=== PATIENT | male | born 1955 | race Two or more races ===

== ENCOUNTER 2024-11-18 10:32 | Emergency (ER) | payer MEDICARE, MEDICAID, SELFPAY ==
[2024-11-18 10:42] VITALS: BP 125/65; PULSE 75; RESP 18; TEMP 36.7; O2SAT 95; BMI 22.1
--- NOTE | 2024-11-18 10:49 | XR_ITS ---
Examination: CT abdomen and pelvis without contrast. Coronal 3-D reconstructions. Sagittal 2-D reconstructions. Date and time of exam:November 18, 2024 1110 hrs. Indications: Onset generalized abdominal pain and diarrhea nausea vomiting today CTDI: vol (mGy): 6.01 DLP: (mGycm): 333 Technique: Axial images of the abdomen have been obtained, 3 mm slice thickness Intravenous contrast material has not been administered. Low dose protocols were performed. One or more of the following dose reduction techniques were used; automated exposure control, adjustment of the mA and/or KV according to patient size, use of iterative reconstruction technique. Findings: Significant enlargement left atrium left ventricle Moderate vascular congestion Cirrhosis, liver irregular in contour with 10 mm calcification anterior margin of the liver Contracted gallbladder No splenomegaly No pancreatic mass Bilateral small renal cyst Moderate bilateral renal parenchymal scar formation No hydronephrosis or ureteral calculi Mild diffuse wall thickening involving the colon, likely hepatic colopathy Normal appendix No diverticulitis Normal seminal vesicles Transverse prostate dimension 5.4 cm Contracted urinary bladder Left inguinal hernia which contains small bowel with findings suspicious for early incarceration of the small bowel and dilated small bowel loops in the pelvis Prominent osteopenia Impression: Cirrhosis Negative for splenomegaly Moderate bilateral renal parenchymal scar formation Hepatic colopathy Left inguinal hernia which contains small bowel, suspicious for early incarceration of the small bowel with dilated small bowel loops in the pelvis, recommend surgical consultation
--- NOTE | 2024-11-18 10:49 | PD.EDRME ---
Rapid Medical Screening Exam E Arrival date/time: 11/18/24 10:32 69-year-old male with no known medical history presents to the emergency room with a chief complaint of lower abdominal pain, and hematuria x 2 days. I have greeted and performed a focused initial assessment of this patient. A comprehensive ED assessment and evaluation of the patient, analysis of all test results, and completion of the medical decision making process will be conducted by additional ED providers. Chief Complaint: Nausea/Vomiting/Diarrhea Vital signs: Vital Signs Temperature 98.1 F 11/18/24 10:42 Pulse Rate 75 11/18/24 10:42 Respiratory Rate 18 11/18/24 10:42 Blood Pressure 125/65 11/18/24 10:42 Pulse Oximetry (%) 95 11/18/24 10:42 Oxygen Delivery Method Room Air 11/18/24 10:42 Vital signs reviewed by provider: Yes
[2024-11-18 11:46] LABS: Basophils % (Auto) 0 % (0-2.5); Eosinophils # (Auto) 0.1 Thou/mm3 (0.0-0.5); Eosinophils % (Auto) 1 % (0-10); Hematocrit 48.6 % (41.0-53.0); Hemoglobin 15.9 g/dL (13.5-16.0); Immature Granulocytes % (Auto) 0 % (0-0); Immature Granulocytes Auto 0.03 Thou/mm3 (0.00-0.00); Lymphocytes # (Auto) 0.8 Thou/mm3 (1.0-4.8); Lymphocytes % (Auto) 8 % (10-50); Mean Corpuscular HGB Conc 32.7 g/dl (31.0-37.0); Mean Corpuscular Hemoglobin 31.7 pg (25.0-35.0); Mean Corpuscular Volume 97 fL (80-100); Monocytes # (Auto) 0.9 Thou/mm3 (0.0-0.8); Monocytes % (Auto) 9 % (0-12); Neutrophils # (Auto) 8.1 Thou/mm3 (1.8-7.7); Neutrophils % (Auto) 82 % (37-80); Nucleated Red Blood Cell % 0 /100 WBC (0); Platelet Count 207 Thou/mm3 (140-440); RDW Standard Deviation 50.3 fL (35.1-43.9); Red Blood Count 5.01 Miln/mm3 (4.50-5.90)
[2024-11-18 12:05] LABS: Alanine Aminotransferase 17 U/L (10-49); Albumin, Serum 4.4 gm/dL (3.4-4.8); Albumin/Globulin Ratio 1.3 (1.2-2.2); Alkaline Phosphatase 99 U/L (46-116); Anion Gap 8 (7-16); Aspartate Amino Transferase 26 U/L (0-34); BUN/Creatinine Ratio 16 Ratio (12-20); Bilirubin,Total 0.9 mg/dL (0.3-1.2); Blood Urea Nitrogen 22 mg/dL (9-23); Calcium 9.6 mg/dL (8.3-10.6); Calcium (Corrected) 9.6 mg/dL (8.5-10.1); Carbon Dioxide 24.1 mMol/L (20.0-31.0); Chloride 106 mMol/L (98-107); Creatinine (Component) 1.4 mg/dL (0.6-1.3); Estimated Creatinine Clearance 48.6 mL/min (>60); Globulin 3.4 gm/dL (2.3-3.5); Glucose 95 mg/dL (74-106); Lipase 89 U/L (12-53); Osmolality,Calculated 278 (275-295); Potassium 5.5 mMol/L (3.4-5.1); Sodium 138 mMol/L (136-145); Total Protein 7.8 gm/dL (5.7-8.2); eGFR 55 See Note
--- NOTE | 2024-11-18 12:48 | EKG_ITS ---
[facility] Test Date: 2024-11-18 Pat Name: EDMUND PONCE Department: Room: - Gender: Male Dba Manager: : [id number] Requested By: Earline Reagan ([facility]) Daniel Order Number: [id number] Reading MD: Earline Reagan ([facility]) Daniel Measurements Intervals [place] Rate: 78 P: AL: QRS: 215 QRSD: 172 T: 29 QT: 422 QTc: 481 Interpretive Statements ATRIAL FIBRILLATION RIGHT AXIS DEVIATION [QRS AXIS > 100] RIGHT BUNDLE BRANCH BLOCK AND POSSIBLE RIGHT VENTRICULAR HYPERTROPHY [RBBB, 1.5 mV R IN V1, RAD] No previous ECG available for comparison /store/S0/[id number]/[id number].pdf
--- NOTE | 2024-11-18 12:50 | PD.EDABDPN ---
ED Abdominal Pain RME/HPI General Chief Complaint: Nausea/Vomiting/Diarrhea Stated complaint: VOMITING, DIARRHEA, URINATING BLOOD, ABD PAIN Time seen by provider: 11/18/24 12:48 Arrival date/time: 11/18/24 10:32 This is a 69-year-old male history of CHF, heart valve replacement currently on warfarin, liver cirrhosis presents to the emergency department with complaints of left lower abdominal pain x 2 days. Patient does have a history of inguinal hernia for many years now. He states his pain began yesterday with mild nausea. Reports pain 6 out of 10 patient did not attempt any interventions or take any OTC medications prior to ED visit. Patient also reported he had some mild diarrhea. Denies fever, chills no emesis. Limitations: no limitations RME / HPI RME / HPI narrative: 11/18/24 10:32 69-year-old male with no known medical history presents to the emergency room with a chief complaint of lower abdominal pain, and hematuria x 2 days. I have greeted and performed a focused initial assessment of this patient. A comprehensive ED assessment and evaluation of the patient, analysis of all test results, and completion of the medical decision making process will be conducted by additional ED providers. Related Data Previous Rx's ?Medication ?Instructions ?Recorded amoxicillin 875 mg-potassium 1 tab PO BID #14 tabs 11/18/24 clavulanate 125 mg tablet Allergies Allergy/AdvReac Type Severity Reaction Status Date / Time No Known Allergies Allergy Verified 11/18/24 10:35 Review of Systems Review of Systems Systems Reviewed: All systems reviewed, normal except as documented Narrative Review of Systems: Gen: No fever, no chills, no weight loss EYES: No discharge, no visual changes, no pain HEENT: No ear pain, no congestion, no sore throat PULM: No shortness of breath, no cough, no congestion CV: No chest pain, no dyspnea on exertion, no palpitations GI: No nausea, no vomiting, no diarrhea, + left lower pain, no constipation : No frequency, no urgency, no dysuria Musc/skel: No joint pain, no back pain Skin: No rash Psyc: No hallucinations, no depression Heme/Lymph: No easy bleeding or bruising tendencies Neuro: No weakness, no headache ED Exam General Limitations: Present no limitations General appearance: Present alert and in no apparent distress Head Head exam: Present atraumatic Eye Eye exam: Present normal appearance, PERRL and EOMI ENT ENT exam: Present normal exam, normal oropharynx and mucous membranes moist Neck Neck exam: Present normal inspection, full ROM and trachea midline Chest Chest inspection: Present normal inspection and symmetric chest wall rise Respiratory Respiratory exam: Present normal lung sounds bilaterally Cardiovascular Cardiovascular exam: Present regular rate, normal rhythm and normal heart sounds Abdominal Exam Abdominal exam: Present soft, tenderness and normal bowel sounds; Absent distention or guarding Abdominal tenderness: Present LLQ and mild Rectal Exam Rectal exam: Present deferred exam: Present normal inspection Extremities Exam Extremities exam: Present normal inspection and full ROM Back Exam Back exam: Present normal inspection and full ROM Neurological Exam Neurological exam: Present alert, oriented X3 and CN II-XII intact Psychiatric Psychiatric exam: Present normal affect and normal mood Skin Skin exam: Present warm, dry, intact and normal color Course Course Course Narrative: 1253-I did go ahead and spoke to general surgery who will come and evaluate patient Quality Measures none Orders Category Date Time Status EKG (ED ONLY) *Do not use* NOW Care 11/18/24 12:[address] abdomen pelvis wo con Stat Exams 11/18/24 10:49 Completed EKG (ED Only) Stat Exams 11/18/24 12:48 Draft CBC Stat Lab 11/18/24 11:19 Completed CMP [Comprehensive Metabolic Panel] Stat Lab 11/18/24 11:19 Completed Lipase Stat Lab 11/18/24 11:19 Completed PT [Prothrombin Time with INR] Stat Lab 11/18/24 11:19 Completed Sed Rate (ESR) Stat Lab 11/18/24 11:19 Completed Troponin I Stat Lab 11/18/24 11:19 Completed UA [Urinalysis] Stat Lab 11/18/24 13:06 Completed Urine Culture Stat Lab 11/18/24 13:06 Received Vital Signs Vital signs: Vital Signs Temperature 98.1 F 11/18/24 10:42 Pulse Rate 75 11/18/24 10:42 Respiratory Rate 18 11/18/24 10:42 Blood Pressure 125/65 11/18/24 10:42 Pulse Oximetry (%) 95 11/18/24 10:42 Oxygen Delivery Method Room Air 11/18/24 10:42 Abdominal Pain MDM MDM Narrative MDM Narrative:: This is a 69-year-old male evaluated in the emergency department for complaints of lower abdominal pain. Does have a history of many years of inguinal hernia. Ports he did have some mild dysuria prompting his ED visit today. Patient's vital signs stable during ED stay. No changes in condition. Labs reassuring WBCs 10 no leukocytosis no bandemia no anemia. Sodium 138 potassium 5.5 creatinine 1.4 GFR 55 liver enzymes normal troponin negative lipase 89. UA positive for RBCs and 21 WBCs most likely UTI. I did go ahead and reviewed his CT scan which demonstrates hepatic colopathy, and left inguinal hernia patient reports his had that inguinal hernia for 6 years has not followed up outpatient. Due to the reading report by radiologist I did go ahead and contact general surgery on-call @1400-patient evaluated by general surgery Dr. Erazo Reports that inguinal hernia is reducible. Patient can be followed outpatient general surgery after cardiac clearance for inguinal hernia repair. At this time I feel the patient safe to be discharged with treatment of acute UTI. Did discuss with the patient findings of possible liver cirrhosis on CT scan, PT and INR elevated. And hepatic colopathy. He advises he will follow-up with his PCP return to the emergency department with any worsening symptoms or change in condition. Patient data External records reviewed:: [facility] previous records Clinical information provided by:: patient Social determinants that could affect healthcare access:: none Patient has the following chronic illnesses:: CHF, valve replacement, liver cirrhosis, How is presenting disease/condition affected by chronic disease/condition?: exacerbated by Evaluation data The following diagnostics were reviewed and interpreted by me:: lab results, radiology exam(s) and EKG tracing(s) Lab and/or radiology exams considered but not ordered:: Yes Interpretation Summary: Examination: CT abdomen and pelvis without contrast. Coronal 3-D reconstructions. Sagittal 2-D reconstructions. Date and time of exam:November 18, 2024 1110 hrs. Indications: Onset generalized abdominal pain and diarrhea nausea vomiting today CTDI: vol (mGy): 6.01 DLP: (mGycm): 333 Technique: Axial images of the abdomen have been obtained, 3 mm slice thickness Intravenous contrast material has not been administered. Low dose protocols were performed. One or more of the following dose reduction techniques were used; automated exposure control, adjustment of the mA and/or KV according to patient size, use of iterative reconstruction technique. Findings: Significant enlargement left atrium left ventricle Moderate vascular congestion Cirrhosis, liver irregular in contour with 10 mm calcification anterior margin of the liver Contracted gallbladder No splenomegaly No pancreatic mass Bilateral small renal cyst Moderate bilateral renal parenchymal scar formation No hydronephrosis or ureteral calculi Mild diffuse wall thickening involving the colon, likely hepatic colopathy Normal appendix No diverticulitis Normal seminal vesicles Transverse prostate dimension 5.4 cm Contracted urinary bladder Left inguinal hernia which contains small bowel with findings suspicious for early incarceration of the small bowel and dilated small bowel loops in the pelvis Prominent osteopenia Impression: Cirrhosis Negative for splenomegaly Moderate bilateral renal parenchymal scar formation Hepatic colopathy Left inguinal hernia which contains small bowel, suspicious for early incarceration of the small bowel with dilated small bowel loops in the pelvis, recommend surgical consultation Medications / Prescriptions Medications or Prescriptions considered but not ordered:: No Medication administrations:: No Consultations Consultation(s) initiated? (list below): Yes Consultation #1 (Physician, Specialty, Details): Dr. Car general surgery. Diagnosis Differential diagnosis abdominal pain: abdominal pain, constipation, gastroenteritis, small bowel obstruction and other (Hernia inguinal hernia) Most likely diagnosis given after review of the tests above:: Hepatic colopathy inguinal hernia pain Admission Indicated Admission indicated?: not indicated Admission Request Was there a request for admission?: No Disposition Plan Disposition Plan: Discharge Discharge Attestation Discharge Attestation: The patient and all family members were given an opportunity to ask questions and understood the discharge instructions. Discharge instructions specifically effects, indications for sooner follow up or return to the emergency department, and the expected course of current diagnosis. Patient condition: Stable Discharge Plan Plan Patient Disposition: HOME (Self Care) Patient condition on transfer: Stable Prescriptions/Referrals Prescriptions/Med Rec: New amoxicillin-pot clavulanate 875-125 mg tablet 1 tab PO BID Qty: 14 0RF Referrals: No Primary/Family,Physician [Primary Care Provider] - In 1 week Problem List Clinical Impression: UTI (urinary tract infection), Cirrhosis of liver, Inguinal hernia Patient/Caregiver Discharge Instructions Discharge Activity: activity as tolerated Education Materials: Treating Cirrhosis, Understanding Urinary Tract ..., ED Hernia (Adult) Additional Instructions: I will start you on antibiotics for urinary tract infection. Is very important that you follow-up with your primary doctor 2 days your test demonstrated today you have some mild cirrhosis (liver disease )in which you will need close follow-up. You also have a chronic hernia which you need to have taking care of you can do this in the outpatient basis Dr. Car-neurosurgery did evaluate you in the emergency department and stated to you you can have this replaced in outpatient basis. Please take antibiotics as directed. Drink a lot of water can take [id number] pain reliever for pain. Return to the emergency department this any worsening symptoms change in condition. Print Language: Georgian Stand Alone Forms: Kaylee Award Info., Patient Portal Info Letter PA/NAVIGATION TEACHER Supervising Physician PA/NAVIGATION TEACHER Supervising Physician: Dr. Bradshaw
[2024-11-18 13:10] LABS: INR 2.2 (0.9-1.3)
[2024-11-18 13:13] LABS: Collection Type, Urine Clean Catch
[2024-11-18 13:21] LABS: Bacteria,Urine Rare; Bilirubin,Urine Negative (Negative); Blood,Urine 1+ (Negative); Clarity,Urine Clear (Clear/Hazy); Color,Urine Yellow (Lt Yel-Yel); Glucose, Urine Negative (Negative); Ketones,Urine Negative (Negative); Leukocyte Esterase,Urine Positive (Negative); Nitrite,Urine Negative (Negative); Protein,Urine Trace (Neg - Trace); RBC,Urine 4 /hpf (0-3); Specific Gravity,Urine 1.024 (1.001-1.035); Squamous Epithelial Cell,Urine 5 /hpf (0-5); Urobilinogen,Urine Negative mg/dL (0.0-1.0); WBC,Urine 21 /hpf (0-5)
[2024-11-18 13:27] LABS: Troponin I 0.038 ng/mL (0.0-0.045)
[2024-11-18 13:56] LABS: Sed Rate (ESR) 16 mm/hr (0-20)
== END 2024-11-18 15:27 | disposition home or self-care (01) ==
PROVIDERS: Nurse Practitioner Family; Nurse Practitioner Primary Care; Emergency Provider Emergency Medicine
DX: N39.0 Urinary tract infection, site not specified (principal); K40.90 Unilateral inguinal hernia, without obstruction or gangrene, not specified as recurrent; K74.60 Unspecified cirrhosis of liver; R19.7 Diarrhea, unspecified
CPT/HCPCS: 36415; 74176; 80053; 81001; 83690; 84484; 85025; 85610; 85652; 87077; 87086; 87186; 93005; 99284

== ENCOUNTER 2024-11-27 18:50 | Emergency (ER) | payer MEDICARE, MEDICAID, SELFPAY ==
[2024-11-27 18:52] VITALS: BMI 22.1
[2024-11-27 19:34] VITALS: BP 134/84; PULSE 85; RESP 18; TEMP 37.2; O2SAT 98
--- NOTE | 2024-11-27 19:40 | XR_ITS ---
Examination: PA lateral chest 2 views Technique: Upright PA lateral chest 2 views Exam date and time: November 27, 2024 1951 hrs. Indications: Shortness of breath fever today. Findings: Moderate enlargement left ventricle Moderate hyperexpansion Cardiac leads satisfactory position Minimal blunting of costophrenic angles Mild vascular congestion. No lobar pneumonia or pulmonary edema Impression: Moderate enlargement left ventricle No lobar pneumonia or pulmonary edema
--- NOTE | 2024-11-27 19:40 | PD.EDRME ---
Rapid Medical Screening Exam RME Arrival date/time: 11/27/24 18:50 69-year-old male reports with complaints of cough shortness of breath fever and chills x 3 days Chief Complaint: Flu Like Symptoms Time Seen by Provider: 11/27/24 18:55 Vital signs: Vital Signs Temperature 98.9 F 11/27/24 19:34 Pulse Rate 85 11/27/24 19:34 Respiratory Rate 18 11/27/24 19:34 Blood Pressure 134/84 H 11/27/24 19:34 Pulse Oximetry (%) 98 11/27/24 19:34 Oxygen Delivery Method Room Air 11/27/24 19:34
--- NOTE | 2024-11-27 20:11 | PD.EDURI ---
Upper Respiratory Inf. RME/HPI General Chief Complaint: Flu Like Symptoms Stated Complaint: Fever, cough, congestion, bodyaches, GARCIA, SOB Time Seen by Provider: 11/27/24 18:55 Arrival date/time: 11/27/24 18:50 RME / HPI RME / HPI Narrative: 11/27/24 18:50 69-year-old male reports with complaints of cough shortness of breath fever and chills x 3 days This section includes all my notes and documentations, including HPI, PE, and ED course. Matt Cassidy MD HPI: 69-year-old male here with about 40-hour history of cough and subjective fever and chills and bodyaches and malaise. No other complaints. ROS: All negative except as documented in HPI. Physical Exam: General: Alert and oriented. Hacking cough noted. Eyes: Conjunctivae and lids clear. ENT: No nasal congestion. Neck: Supple. Heart: RRR. Lungs: No respiratory distress. Good air movement. No rhonchi, wheezing, rales. Skin: Warm and dry. Neuro: Alert and oriented X 3. I reviewed all diagnostic test results. My interpretation of the chest x-ray is no acute findings. Influenza positive. At this point, diagnoses include influenza. Treatment here included Tamiflu. Prescribe Tamiflu and recommended supportive care. Based on my best medical judgment, made decision no further evaluation or treatment indicated at this time. Patient understands and agrees to the discharge instructions customized and printed, see below. Discharge instructions from Dr. Cassidy: --No physical exertion for 3 days to help rest your lungs. --No smoking and no exposure to smoking or pets or dust or cold air. --Tamiflu to kill the influenza germs. --Prednisone to help decrease inflammation of the lungs. --Ibuprofen 800 mg every 8 hours today and tomorrow.? Then as needed for fever or pain. --Tylenol with codeine for severe cough or pain.? --Benadryl as needed for cough or congestion.? ?Increase oral fluid.? We need extra fluid when we are sick.?? --See a private doctor next week if not better. --Seek immediate medical care with significant worsening or with any concerns. Matt Cassidy MD Related Data Previous Rx's ?Medication ?Instructions ?Recorded amoxicillin 875 mg-potassium 1 tab PO BID #14 tabs 11/18/24 clavulanate 125 mg tablet acetaminophen 300 mg-codeine 30 mg 2 tab PO Q8H PRN pain #20 tabs 11/27/24 tablet oseltamivir 75 mg capsule (Tamiflu) 75 mg PO BID 5 days #10 caps 11/27/24 prednisone 50 mg tablet 50 mg PO QDAY #5 tabs 11/27/24 Allergies Allergy/AdvReac Type Severity Reaction Status Date / Time No Known Allergies Allergy Verified 11/18/24 10:35 Course Quality Measures none Orders Category Date Time Status Bedside Influenza A&B Antigen Test NOW Care 11/27/24 19:40 Completed XR chest 2V Stat Exams 11/27/24 19:40 Completed Oseltamivir [Tamiflu] Med 11/27/24 20:04 Discontinued 75 mg PO X1 ONE Vital Signs Vital signs: Vital Signs Temperature 98.9 F 11/27/24 19:34 Pulse Rate 85 11/27/24 19:34 Respiratory Rate 18 11/27/24 19:34 Blood Pressure 134/84 H 11/27/24 19:34 Pulse Oximetry (%) 98 11/27/24 19:34 Oxygen Delivery Method Room Air 11/27/24 19:34 Upper Respiratory Infection Patient data External records reviewed:: [facility] previous records Clinical information provided by:: patient Social determinants that could affect healthcare access:: none Patient has the following chronic illnesses:: None How is presenting disease/condition affected by chronic disease/condition?: no chronic disease Evaluation data The following diagnostics were reviewed and interpreted by me:: lab results and radiology exam(s) Lab and/or radiology exams considered but not ordered:: None Interpretation Summary: Positive influenza Medications / Prescriptions Medications or Prescriptions considered but not ordered:: None Medication administrations:: Medication Administration History Discontinued Medications Oseltamivir Phosphate (Oseltamivir 75 Mg Capsule) 75 mg PO X1 ONE Stop: 11/27/24 20:05 Tamiflu Consultations Consultation(s) initiated? (list below): No Diagnosis Upper Respiratory Differential Diagnosis: upper respiratory infection, viral infection, bronchitis, influenza and other (Pneumonia, COVID) Most likely diagnosis given after review of the tests above:: Positive influenza Admission Indicated Admission indicated?: not indicated Explain why admission is indicated or not indicated:: There is no indication for admission. Admission Request Was there a request for admission?: No Disposition Plan Disposition Plan: Discharge Discharge Attestation Discharge Attestation: The patient and all family members were given an opportunity to ask questions and understood the discharge instructions. Discharge instructions specifically effects, indications for sooner follow up or return to the emergency department, and the expected course of current diagnosis. Patient condition: Stable Discharge Plan Plan Patient Disposition: HOME (Self Care) Prescriptions/Referrals Prescriptions/Med Rec: New acetaminophen-codeine 300-30 mg tablet 2 tab PO Q8H MDD 6 PRN (Reason: pain) Qty: 20 0RF oseltamivir [Tamiflu] 75 mg capsule 75 mg PO BID 5 Days Qty: 10 0RF prednisone 50 mg tablet 50 mg PO QDAY Qty: 5 0RF No Action amoxicillin-pot clavulanate 875-125 mg tablet 1 tab PO BID Qty: 14 0RF Problem List Clinical Impression: Influenza Patient/Caregiver Discharge Instructions Discharge Activity: activity as tolerated Education Materials: ED Influenza (Adult) Additional Instructions: Discharge instructions from Dr. Cassidy: --No physical exertion for 3 days to help rest your lungs. --No smoking and no exposure to smoking or pets or dust or cold air. --Tamiflu to kill the influenza germs. --Prednisone to help decrease inflammation of the lungs. --Ibuprofen 800 mg every 8 hours today and tomorrow.? Then as needed for fever or pain. --Tylenol with codeine for severe cough or pain.? --Benadryl as needed for cough or congestion.? ?Increase oral fluid.? We need extra fluid when we are sick.?? --See a private doctor next week if not better. --Seek immediate medical care with significant worsening or with any concerns. Instrucciones de jorge del Dr. Cassidy: --No hacer esfuerzo f?sico karen 3 d?as para ayudar a que michael pulmones descansen. --No fumar ni exponerse al humo del tabaco, a las mascotas, al polvo o al aire fr?o. --Tamiflu para matar los g?rmenes de la gripe. --Prednisona para ayudar a disminuir la inflamaci?n de los pulmones. --Ibuprofeno 800 mg cada 8 horas hoy y ma?dariusz. Luego, seg?n sea necesario para la fiebre o el dolor. --Tylenol con code?na para la tos o el dolor intensos. --Benadryl seg?n sea necesario para la tos o la congesti?n. --Aumentar la ingesta de l?quidos por v?a oral. Necesitamos l?quidos adicionales cuando estamos enfermos. --Consultar a un m?dico privado la pr?xima semana si no mejora. --Buscar atenci?n m?dica inmediata si empeora significativamente o si tiene alguna inquietud. Print Language: Citizen Of [place] Stand Alone Forms: Kaylee Award Info., Patient Portal Info Letter
[2024-11-27] MEDS: OSELTAMIVIR 75 MG CAPSULE PO (20:31)
[2024-11-27 20:34] VITALS: RESP 18
== END 2024-11-27 20:34 | disposition home or self-care (01) ==
LOC: SERX 20:36
PROVIDERS: Emergency Provider Emergency Medicine
DX: J11.1 Influenza due to unidentified influenza virus with other respiratory manifestations (principal)
CPT/HCPCS: 71046; 87400; 99283; A9270

== ENCOUNTER 2024-12-09 10:58 | Outpatient (AMB) | payer MEDICARE, MEDICAID, SELFPAY ==
[2024-12-09 11:18] VITALS: BP 153/93; PULSE 0; RESP 19; TEMP 36.7; O2SAT 99; BMI 21.8
--- NOTE | 2024-12-09 11:18 | PD.GSCLVISIT ---
Vital Signs - [facility] 12/09/24 11:18 Height 1.75 m Height Method Stated Weight 66.905 kg Weight Measurement Method Standing Scale BMI 21.8 BP 153/93 H Blood Pressure Source Automatic Cuff Blood Pressure Location Left Upper Arm Position Sitting Respiration 19 Pulse 0 L Pulse Source Monitor Temp 98.0 F Temp Source Temporal Artery Scan Pulse Oximetry (%) 99 Oxygen Delivery Method Room Air Med/Allergies Allergies & Medications Allergies No Known Allergies Allergy (Verified 12/09/24 11:19) Medication Reconciliation amoxicillin 875 mg-potassium clavulanate 125 mg tablet 1 tab PO BID #14 tabs 11/18/24 [Rx Confirmed 12/09/24] acetaminophen 300 mg-codeine 30 mg tablet 2 tab PO Q8H PRN pain #20 tabs 11/27/24 [Rx Confirmed 12/09/24] prednisone 50 mg tablet 50 mg PO QDAY #5 tabs 11/27/24 [Rx Confirmed 12/09/24] MA Intake Visit Data Collection New Patient or Established: Established Patient (seen at [facility] within 3 years) Seen by Clinical Staff ONLY (RN/MA): No Reason for Visit:: HERNIA REFERRAL Pain Present Currently: No Electronics Technician Apprentice Required: No PCP or OBGYN visit in last 3 months: Yes Hx Now: No Do You Feel Safe at Home: Yes Authorities Contacted: N/A Smoking Status Smoking Status: Never smoker Immunization / Flu Flu Vaccine in the Last 12 Months: No Flu Vaccine Exclusion Criteria: No Exclusion Criteria Past Medical History Social History SMOKING STATUS: Smoking status: Never smoker HPI HPI Narrative 69M with CHF s/p AICD, heart valve replacement on warfarin, cirrhosis of liver referred for recurrent left inguinal hernia. Pt reports he had surgery twice in [place] for this hernia long ago, believes there was mesh placed but he does not recall his surgeon's name. Pt states the hernia recurred years ago, and is painful and sometimes associated with nausea/vomiting. He does not have any concerns about his right groin and does not feel the scrotum is involved Pt recently moved back to [place] from [place] so he is not yet established with a PCP or global marketing coordinator PMH: CHF, cirrhosis PSHx: Heart valve replacement in 2012, open left inguinal hernia repair with mesh x2, AICD Meds: includes Warfarin 8mg Allergies: NKDA ROS Review of Systems Systems Reviewed: All systems reviewed, normal except as documented Constitutional Constitutional: Reports system reviewed and no additional complaints, except as documented Objective/Exam General General Appearance: alert, cooperative and well groomed Resp Respiratory exam: Absent respiratory distress Abdominal Abdominal exam: Present hernia (reducible left inguinal hernia, no overlying skin changes) and scar (left inguinal incision well-healed) Results CT reviewed Assessment & Plan Diagnosis / Problem List (1) Recurrent inguinal hernia of left side without obstruction or gangrene: Status: Acute Assessment & Plan: 69M with CHF, history of heart valve replacement on warfarin and recurrent left inguinal hernia here for evaluation. I explained that because he has had two open repairs in the past, it would be ideal to have surgery in either a laparascopic or robotic fashion so that the same tissue planes do not have to be violated, as repeating the surgery in an open fashion confers a significant risk of bleeding and injury to vital structures. I reached out to Dr Liriano who confirmed he accepts pt's insurance so I will refer, and in the meantime I advised pt to establish care with a PCP and global marketing coordinator for preoperative evaluation Orders: Referrals General surgery K40.91 - Unilateral inguinal hernia, without obstruction or gangrene, recurrent Advanced Care Planning Advance care planning discussed with:: patient and child Office Procedures GNS Level of Care Nursing/Assessment Patient Status: Established Patient Nursing Assessment/Reassesment: Medication Reconciliation, Update PMH in EMR and Vital Signs Coordination of Care: Complex Care and Chronic Disease 1-5, Consent,records obtained, informed consent, Education Simp Pt/Fam, Results/Orders obtained and Staff clarify orders Established Patient Charge Established Patient Point Assignment: 90 Established Patient Point Charge: EP Level 3 (80-115) Patient Portal Questionaires Social History Tobacco History Smoking Status: Never smoker Domestic Abuse History Do You Feel Safe at Home: Yes Review of Systems Report any current symptoms Only answer those that you have currently: Past Medical History Past Medical History Have you ever been diagnosed with any of the following:
== END 2024-12-09 11:15 | disposition home or self-care (01) ==
LOC: HODSRG 10:58
PROVIDERS: PCP Family Medicine; Referring Provider Family Medicine; Supervising Provider Surgery; Visit Provider Surgery
DX: K40.91 Unilateral inguinal hernia, without obstruction or gangrene, recurrent (principal); I50.9 Heart failure, unspecified; Z95.810 Presence of automatic (implantable) cardiac defibrillator; K74.60 Unspecified cirrhosis of liver
CPT/HCPCS: 99213; G0463

== ENCOUNTER 2024-12-29 21:59 | Emergency (ER) | payer MEDICARE, MEDICAID, SELFPAY ==
[2024-12-29 22:00] VITALS: BMI 22.1
[2024-12-29 22:15] VITALS: BP 115/74; PULSE 65; RESP 18; TEMP 37; O2SAT 98
[2024-12-29] MEDS: HYDROcodone/APAP 5/325 TABLET 1 TAB PO (23:33)
--- NOTE | 2024-12-30 02:51 | PD.EDMALE ---
ED Male Genitalurinary RME/HPI General Chief complaint: Abdominal Pain Stated complaint: ABD PAIN FROM HERNIA Time Seen by Provider: 12/29/24 23:04 Arrival date/time: 12/29/24 21:59 69M with history of L inguinal hernia presents to ED with pain there. Patient denies N/V. Patient saw Dr. Erazo recently who referred him to another surgeon. Patient has not taken anything for the pain. Limitations: no limitations Related Data Previous Rx's ?Medication ?Instructions ?Recorded amoxicillin 875 mg-potassium 1 tab PO BID #14 tabs 11/18/24 clavulanate 125 mg tablet acetaminophen 300 mg-codeine 30 mg 2 tab PO Q8H PRN pain #20 tabs 11/27/24 tablet prednisone 50 mg tablet 50 mg PO QDAY #5 tabs 11/27/24 Allergies Allergy/AdvReac Type Severity Reaction Status Date / Time No Known Allergies Allergy Verified 12/09/24 11:19 Review of Systems Review of Systems Systems Reviewed: All systems reviewed, normal except as documented Constitutional Constitutional: Reports system reviewed and no additional complaints, except as documented, Denies fever(s) and Denies headache(s) ENT Ears, Nose, Mouth, and Throat: Denies disequilibrium and Denies headache(s) Cardiovascular Cardiovascular: Reports system reviewed and no additional complaints, except as documented, Denies chest pain and Denies dyspnea Respiratory Respiratory: Reports system reviewed and no additional complaints, except as documented, Denies cough and Denies dyspnea Gastrointestinal Gastrointestinal: Reports system reviewed and no additional complaints, except as documented, Denies abdominal pain, Denies nausea and Denies vomiting Genitourinary Genitourinary: Reports as per HPI and Reports flank pain Neurologic Neurologic: Reports system reviewed and no additional complaints, except as documented, Denies confusion, Denies disequilibrium and Denies headache(s) Psychiatric Psychiatric: Denies confusion Past Medical History Social History SMOKING STATUS: Never smoker ED Exam General Limitations: Present no limitations General appearance: Present alert and in no apparent distress Head Head exam: Present atraumatic Eye Eye exam: Present normal appearance, PERRL and EOMI ENT ENT exam: Present normal exam, normal oropharynx and mucous membranes moist Neck Neck exam: Present normal inspection, full ROM and trachea midline Chest Chest inspection: Present normal inspection and symmetric chest wall rise Respiratory Respiratory exam: Present normal lung sounds bilaterally Cardiovascular Cardiovascular exam: Present regular rate, normal rhythm and normal heart sounds Abdominal Exam Abdominal exam: Present soft, normal bowel sounds and other (L inguinal hernia) Extremities Exam Extremities exam: Present normal inspection and full ROM Back Exam Back exam: Present normal inspection and full ROM Neurological Exam Neurological exam: Present alert, oriented X3 and CN II-XII intact Psychiatric Psychiatric exam: Present normal affect and normal mood Skin Skin exam: Present warm, dry, intact and normal color Course Quality Measures none Orders Category Date Time Status HYDROcodone*/APAP 5/325 [[place] 5/325] Med 12/29/24 23:04 Discontinued 1 tab PO X1 ONE Vital Signs Vital signs: Vital Signs Temperature 98.6 F 12/29/24 22:15 Pulse Rate 65 12/29/24 22:15 Respiratory Rate 18 12/29/24 22:15 Blood Pressure 115/74 12/29/24 22:15 Pulse Oximetry (%) 98 12/29/24 22:15 Oxygen Delivery Method Room Air 12/29/24 22:15 O2 at 98% on RA and WNLs Urogenital - Male MDM Narrative MDM Narrative:: 69M with history of L inguinal hernia presents to ED with pain there. Patient denies N/V. Patient saw Dr. Erazo recently who referred him to another surgeon. Patient has not taken anything for the pain. Physical exam with vice president of contracts reveals easily reducible L inguinal hernia. No tenderness. Patient is afebrile, calm, and alert. Meds and counselor aide given. Patient data External records reviewed:: [facility] previous records Clinical information provided by:: patient Social determinants that could affect healthcare access:: none Patient has the following chronic illnesses:: L inguinal hernia How is presenting disease/condition affected by chronic disease/condition?: caused by Evaluation data The following diagnostics were reviewed and interpreted by me:: other (specify) (none) Lab and/or radiology exams considered but not ordered:: not ordered Interpretation Summary: n/a Medications / Prescriptions Medications or Prescriptions considered but not ordered:: ordered Medication administrations:: Medication Administration History Discontinued Medications Hydrocodone Bitart/Acetaminophen (Hydrocodone/Apap 5/325 Tablet) 1 tab PO X1 ONE Stop: 12/29/24 23:05 Last Admin: 12/29/24 23:33 Dose: 1 tab Documented By: KF above Consultations Consultation(s) initiated? (list below): No Diagnosis Urogenital Male Differential Diagnosis: urinary tract infection, priapism, urethritis, epididymitis, genital herpes simplex, prostatitis, acute retention of urine and inguinal hernia Most likely diagnosis given after review of the tests above:: inguinal hernia Admission Indicated Admission indicated?: not indicated Admission Request Was there a request for admission?: No Disposition Plan Disposition Plan: Discharge Discharge Attestation Discharge Attestation: The patient and all family members were given an opportunity to ask questions and understood the discharge instructions. Discharge instructions specifically effects, indications for sooner follow up or return to the emergency department, and the expected course of current diagnosis. Patient condition: Stable Discharge Plan Plan Patient Disposition: HOME (Self Care) Disposition Comment: Stable Prescriptions/Referrals Prescriptions/Med Rec: No Action amoxicillin-pot clavulanate 875-125 mg tablet 1 tab PO BID Qty: 14 0RF acetaminophen-codeine 300-30 mg tablet 2 tab PO Q8H MDD 6 PRN (Reason: pain) Qty: 20 0RF prednisone 50 mg tablet 50 mg PO QDAY Qty: 5 0RF Referrals: Temporary Provider,ED [Physician] - In 1 week Problem List Clinical Impression: Recurrent inguinal hernia of left side without obstruction or gangrene Patient/Caregiver Discharge Instructions Education Materials: ED Hernia (Adult) Additional Instructions: Please follow-up with PCP within 24-48 hours and return immediately if symptoms worsen. Ibuprofen/Tylenol can be used simultaneously for greater fever/pain control. Print Language: Mexican Stand Alone Forms: Patient Portal Info Letter ZAFAR/JAMI Supervising Physician ZAFAR/JMAI Supervising Physician: Dr. Cassidy
== END 2024-12-29 23:36 | disposition home or self-care (01) ==
LOC: SERX 23:44
PROVIDERS: Emergency Provider Emergency Medicine
DX: K40.91 Unilateral inguinal hernia, without obstruction or gangrene, recurrent (principal)
CPT/HCPCS: 99283; A9270

== ENCOUNTER 2025-02-24 18:32 | Emergency (ER) | payer MEDICARE, SELFPAY ==
[2025-02-24 18:33] VITALS: BMI 24.0
[2025-02-24 19:54] VITALS: BP 165/75; PULSE 65; RESP 16; TEMP 36.7; O2SAT 100
--- NOTE | 2025-02-24 20:04 | XR_ITS ---
Examination: CT cervical spine without contrast 2-D sagittal reconstructions 2-D coronal reconstructions 3-D reconstructions. Exam date and time:February 24, 2025 2020 hours Seizure today, patient fell with injury to the neck, neck pain CTDI:vol (mGy) 8 DLP: (mGycm) 194 Technique: Multiple 2 mm axial sections of the cervical spine have been obtained. The coronal and sagittal reconstructions have been obtained. 3-D reconstructions have been obtained. Low dose protocols were performed. One or more of the following dose reduction techniques were used; automated exposure control, adjustment of the mA and/or KV according to patient size, use of iterative reconstruction technique. Findings: Axial sections demonstrate intact base of the skull. C1 exhibit satisfactory relationship to the odontoid. No acute cervical vertebral body fracture seen. Alignment posterior spinous processes satisfactory. Impression: No acute cervical fracture.
--- NOTE | 2025-02-24 20:04 | XR_ITS ---
Examination: CT brain head without contrast. 2-D sagittal coronal reconstructions Date and time of exam:February 24, 2025 2037 hours INDICATIONS: Patient fell today with injury to the head, head pain and dizziness CTDI: vol (mGy):52 DLP: (mGycm):1089 Technique: Multiple CT axial sections of the brain have been obtained, 5 mm slice thickness. Contrast has not been administered. 2-D sagittal, coronal reconstructions have been obtained Low dose protocols were performed. One or more of the following dose reduction techniques were used; automated exposure control, adjustment of the mA and/or KV according to patient size, use of iterative reconstruction technique. Findings: No significant ventricular enlargement. 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 No mass effect or midline shift Basal cisterns are not remarkable. Fourth ventricle is midline. Cranial vault intact. Impression: Negative for acute hemorrhage, mass effect or midline shift Fracture medial wall left orbit, which appears old but clinical correlation advised
--- NOTE | 2025-02-24 20:05 | XR_ITS ---
Examination: CT chest, without intravenous contrast. CT abdomen, without intravenous contrast. CT pelvis, without intravenous contrast. 2-D sagittal and coronal reconstructions. 3-D reconstructions. Date and time of exam:February 24, 20252036 hours INDICATIONS: Patient fell today with injury to the chest and abdomen, right-sided chest and abdomen pain CTDI vol (mgy) 10.1 DLP (MGycm)702 Technique: Multiple CT images, 3.0 mm slice thickness, obtained chest, abdomen, pelvis, with the high-resolution 64 slice scanner.. Sagittal and coronal 2-D reconstructions are obtained. 3-D reconstructions Low dose protocols were performed. One or more of the following dose reduction techniques were used; automated exposure control, adjustment of the mA and/or KV according to patient size, use of iterative reconstruction technique. Findings: Moderate enlargement left atrium and left ventricle Thoracic aorta pulmonary arteries intact No pneumothorax pulmonary contusion or hemothorax The sternum thoracic and lumbar vertebral body sacral segments appear intact Ribs appear intact Liver is nodular in contour No liver splenic or renal laceration The aorta in the abdomen is intact with no free blood in the abdomen or pelvis Negative for pneumoperitoneum Urinary bladder intact Fluid collection in the left groin, 4.3 cm in transverse dimension, axial image 278, clinical correlation advised. This may represent an inguinal hernia which contains a small portion of small bowel, axial image 272 Old appearing right subcapital hip fracture deformity Bones of the pelvis intact IMPRESSION: Thoracic aorta pulmonary arteries intact No hemopericardium or pneumothorax No abdominal parenchymal laceration No free blood in the abdomen or pelvis Findings most consistent with left inguinal hernia containing small bowel but no incarcerated bowel No acute fractures
--- NOTE | 2025-02-25 03:33 | PD.EDFALL ---
ED Fall Injury RME/HPI General Chief Complaint: Fall Stated Complaint: TRIP AND FALL GLF, HIT HEAD, DENIES LOC Time Seen by Provider: 02/24/25 20:04 Arrival date/time: 02/24/25 18:32 69M with history of cirrhosis presents to ED with evaluation after trip and fall. Patient has head, chest and R hip pain. Patient denies LOC, AMS, seizures, N/V, and vision changes. Limitations: no limitations Related Data Previous Rx's ?Medication ?Instructions ?Recorded amoxicillin 875 mg-potassium 1 tab PO BID #14 tabs 11/18/24 clavulanate 125 mg tablet acetaminophen 300 mg-codeine 30 mg 2 tab PO Q8H PRN pain #20 tabs 11/27/24 tablet prednisone 50 mg tablet 50 mg PO QDAY #5 tabs 11/27/24 Allergies Allergy/AdvReac Type Severity Reaction Status Date / Time No Known Allergies Allergy Verified 02/24/25 18:36 Review of Systems Review of Systems Systems Reviewed: All systems reviewed, normal except as documented Constitutional Constitutional: Reports system reviewed and no additional complaints, except as documented, Reports as per HPI, Denies fever(s) and Reports headache(s) (pain) ENT Ears, Nose, Mouth, and Throat: Denies disequilibrium and Reports headache(s) (pain) Cardiovascular Cardiovascular: Reports system reviewed and no additional complaints, except as documented, Reports as per HPI, Reports chest pain and Denies dyspnea Respiratory Respiratory: Reports system reviewed and no additional complaints, except as documented, Denies cough and Denies dyspnea Gastrointestinal Gastrointestinal: Reports system reviewed and no additional complaints, except as documented, Denies abdominal pain, Denies nausea and Denies vomiting Musculoskeletal Musculoskeletal: Reports as per HPI and Reports arthralgias Neurologic Neurologic: Reports system reviewed and no additional complaints, except as documented, Denies confusion, Denies disequilibrium and Reports headache(s) (pain) Psychiatric Psychiatric: Denies confusion Past Medical History Social History SMOKING STATUS: Current some day smoker ED Exam General Limitations: Present no limitations General appearance: Present alert and in no apparent distress Head Head exam: Present atraumatic Eye Eye exam: Present normal appearance, PERRL and EOMI ENT ENT exam: Present normal exam, normal oropharynx and mucous membranes moist Neck Neck exam: Present normal inspection, full ROM and trachea midline Chest Chest inspection: Present normal inspection and symmetric chest wall rise Respiratory Respiratory exam: Present normal lung sounds bilaterally Cardiovascular Cardiovascular exam: Present regular rate, normal rhythm and normal heart sounds Abdominal Exam Abdominal exam: Present soft and normal bowel sounds Extremities Exam Extremities exam: Present full ROM Expanded Lower Extremity Exam Hip/Pelvis exam: Present full ROM and tenderness (R mild) Back Exam Back exam: Present normal inspection and full ROM Neurological Exam Neurological exam: Present alert, oriented X3 and CN II-XII intact Psychiatric Psychiatric exam: Present normal affect and normal mood Skin Skin exam: Present warm, dry, intact and normal color Course Quality Measures none Orders Category Date Time Status CT cervical spine wo con Stat Exams 02/24/25 20:[address] chest abdomen pelvis wo Stat Exams 02/24/25 20:[address] head/brain wo con Stat Exams 02/24/25 20:04 Completed Vital Signs Vital signs: Vital Signs Temperature 98.0 F 02/24/25 19:54 Pulse Rate 65 02/24/25 19:54 Respiratory Rate 16 02/24/25 19:54 Blood Pressure 165/75 H 02/24/25 19:54 Pulse Oximetry (%) 100 02/24/25 19:54 Oxygen Delivery Method Room Air 02/24/25 19:54 O2 at 100% on RA and WNLs Fall MDM Narrative MDM Narrative:: 69M with history of cirrhosis presents to ED with evaluation after trip and fall. Patient has head, chest and R hip pain. Patient denies LOC, AMS, seizures, N/V, and vision changes. Physical exam reveals no gross head trauma. Normal pupil response and EOM. Minimal R hip tenderness. Gait and ROM intact. Normal WOB. Clear lungs. Patient is afebrile, calm, and alert. CT unremarkable except for possibly old mild orbital fracture. Patient is unaware of previous fx. Jewel Inserter given. Known inguinal hernia also present on CT. Patient data External records reviewed:: [facility] previous records Clinical information provided by:: patient Social determinants that could affect healthcare access:: none Patient has the following chronic illnesses:: cirrhosis How is presenting disease/condition affected by chronic disease/condition?: exacerbated by Evaluation data The following diagnostics were reviewed and interpreted by me:: radiology exam(s) Lab and/or radiology exams considered but not ordered:: ordered Interpretation Summary: above Medications / Prescriptions Medications or Prescriptions considered but not ordered:: ordered Medication administrations:: above Consultations Consultation(s) initiated? (list below): No Diagnosis Fall Differential Diagnosis: syncope, dislocation of shoulder region, fracture of wrist, compression fracture, concussion with loss of consciousness and other (orbital fracture and recurrent inguinal hernia of L side w/o obstruction) Most likely diagnosis given after review of the tests above:: orbital fracture and recurrent inguinal hernia of L side w/o obstruction Admission Indicated Admission indicated?: not indicated Admission Request Was there a request for admission?: No Disposition Plan Disposition Plan: Discharge Discharge Attestation Discharge Attestation: The patient and all family members were given an opportunity to ask questions and understood the discharge instructions. Discharge instructions specifically effects, indications for sooner follow up or return to the emergency department, and the expected course of current diagnosis. Patient condition: Stable Discharge Plan Plan Patient Disposition: HOME (Self Care) Discharge Disposition comment: Stable Prescriptions/Referrals Prescriptions/Med Rec: No Action amoxicillin-pot clavulanate 875-125 mg tablet 1 tab PO BID Qty: 14 0RF acetaminophen-codeine 300-30 mg tablet 2 tab PO Q8H MDD 6 PRN (Reason: pain) Qty: 20 0RF prednisone 50 mg tablet 50 mg PO QDAY Qty: 5 0RF Referrals: No Primary/Family,Physician [Primary Care Provider] - In 1 week Problem List Clinical Impression: Orbital fracture, Recurrent inguinal hernia of left side without obstruction or gangrene Patient/Caregiver Discharge Instructions Education Materials: ED Facial Fracture Additional Instructions: Please follow-up with PCP within 24-48 hours and return immediately if symptoms worsen. See PCP for outpatient referral. Avoid blowing nose. Keep head elevated. Watch for vision changes or inability to move eyes around. Print Language: Wolof Stand Alone Forms: Patient Portal Info Letter ZAFAR/JAMI Supervising Physician ZAFAR/JAMI Supervising Physician: Dr. Young
== END 2025-02-24 22:47 | disposition home or self-care (01) ==
PROVIDERS: Emergency Provider Emergency Medicine
DX: S02.832A Fracture of medial orbital wall, left side, initial encounter for closed fracture (principal); K40.91 Unilateral inguinal hernia, without obstruction or gangrene, recurrent; W01.0XXA Fall on same level from slipping, tripping and stumbling without subsequent striking against object, initial encounter; K74.60 Unspecified cirrhosis of liver; R07.9 Chest pain, unspecified; M25.551 Pain in right hip
CPT/HCPCS: 70450; 71250; 72125; 74176; 99284

== ENCOUNTER 2025-04-05 16:28 | Emergency (ER) | payer MEDICARE, SELFPAY ==
[2025-04-05 16:29] VITALS: BMI 22.1
[2025-04-05 16:58] VITALS: BP 117/73; PULSE 106; RESP 18; TEMP 36.9; O2SAT 97
--- NOTE | 2025-04-05 17:07 | PD.EDSKIN ---
ED Skin Abcess FB-RME/HPI General Stated complaint: RASH ON L) NECK; HUGE, PURPLE KNOTS X 1 DAY Time Seen by Provider: 04/05/25 16:41 Arrival date/time: 04/05/25 16:28 Limitations: no limitations RME / HPI RME / HPI narrative: 69-year-old male who is here today with a painful rash noted at the left lateral neck. This first developed yesterday. He states it is tender to touch. The rash is in no other area. He has no cough or congestion. No shortness of breath. No abdominal pain, nausea, vomiting. No fevers or chills. He has no other complaints. Related Data Previous Rx's ?Medication ?Instructions ?Recorded amoxicillin 875 mg-potassium 1 tab PO BID #14 tabs 11/18/24 clavulanate 125 mg tablet acetaminophen 300 mg-codeine 30 mg 2 tab PO Q8H PRN pain #20 tabs 11/27/24 tablet prednisone 50 mg tablet 50 mg PO QDAY #5 tabs 11/27/24 valacyclovir 1 gram tablet 1,000 mg PO Q8H #20 tabs 04/05/25 Allergies Allergy/AdvReac Type Severity Reaction Status Date / Time No Known Allergies Allergy Verified 04/05/25 16:32 Review of Systems Review of Systems Systems Reviewed: All systems reviewed, normal except as documented ED Exam General Limitations: Present no limitations General appearance: Present alert and in no apparent distress Head Head exam: Present atraumatic Eye Eye exam: Present normal appearance, PERRL and EOMI ENT ENT exam: Present normal exam, normal oropharynx and mucous membranes moist Neck Neck exam: Present normal inspection, full ROM and trachea midline Chest Chest inspection: Present normal inspection and symmetric chest wall rise Respiratory Respiratory exam: Present normal lung sounds bilaterally Cardiovascular Cardiovascular exam: Present regular rate, normal rhythm and normal heart sounds Abdominal Exam Abdominal exam: Present soft and normal bowel sounds Extremities Exam Extremities exam: Present normal inspection and full ROM Back Exam Back exam: Present normal inspection and full ROM Neurological Exam Neurological exam: Present alert and oriented X3 Psychiatric Psychiatric exam: Present normal affect and normal mood Skin Skin exam: Present warm and other (Erythematous vesicles in a dermatomal pattern along the left lateral neck) Course Quality Measures none Orders Category Date Time Status Acyclovir [Zovirax] Med 04/05/25 17:01 Discontinued 800 mg PO X1 ONE Vital Signs Vital signs: Vital Signs Temperature 98.4 F 04/05/25 16:58 Pulse Rate 106 H 04/05/25 16:58 Respiratory Rate 18 04/05/25 16:58 Blood Pressure 117/73 04/05/25 16:58 Pulse Oximetry (%) 97 04/05/25 16:58 Oxygen Delivery Method Room Air 04/05/25 16:58 Skin / Abscess / Foreign Body MDM Narrative MDM Narrative:: 69-year-old male who is here today with a painful rash noted at the left lateral neck. This first developed yesterday. He states it is tender to touch. The rash is in no other area. He has no cough or congestion. No shortness of breath. No abdominal pain, nausea, vomiting. No fevers or chills. He has no other complaints. On exam, patient is nontoxic-appearing. He has erythematous vesicles and a dermatome pattern along the left lateral neck. We discussed the diagnosis of zoster. He is given a dose of acyclovir here. He was discharged with prescription of valacyclovir. He will avoid persons who are immunocompromise. Return as needed for any worsening or emergent changes. Patient data External records reviewed:: None Clinical information provided by:: patient Social determinants that could affect healthcare access:: none Patient has the following chronic illnesses:: History of inguinal hernia How is presenting disease/condition affected by chronic disease/condition?: uneffected by Evaluation data The following diagnostics were reviewed and interpreted by me:: other (specify) (n/a) Lab and/or radiology exams considered but not ordered:: n/a Interpretation Summary: zoster shingles Medications / Prescriptions Medications or Prescriptions considered but not ordered:: n/a Medication administrations:: Medication Administration History Discontinued Medications Acyclovir (Acyclovir 800 Mg Tablet) 800 mg PO X1 ONE Stop: 04/05/25 17:02 See above Consultations Consultation(s) initiated? (list below): No Diagnosis Skin/Abscess Differential Diagnosis: viral exanthem, urticaria, herpes zoster and impetigo Most likely diagnosis given after review of the tests above:: Shingles Admission Indicated Admission indicated?: not indicated Admission Request Was there a request for admission?: No Disposition Plan Disposition Plan: Discharge Discharge Attestation Discharge Attestation: The patient and all family members were given an opportunity to ask questions and understood the discharge instructions. Discharge instructions specifically effects, indications for sooner follow up or return to the emergency department, and the expected course of current diagnosis. Patient condition: Stable Discharge Plan Plan Patient Disposition: HOME (Self Care) Patient condition on transfer: Stable Prescriptions/Referrals Prescriptions/Med Rec: New valacyclovir 1 gram tablet 1,000 mg PO Q8H Qty: 20 0RF No Action amoxicillin-pot clavulanate 875-125 mg tablet 1 tab PO BID Qty: 14 0RF acetaminophen-codeine 300-30 mg tablet 2 tab PO Q8H MDD 6 PRN (Reason: pain) Qty: 20 0RF prednisone 50 mg tablet 50 mg PO QDAY Qty: 5 0RF Problem List Clinical Impression: Zoster Patient/Caregiver Discharge Instructions Education Materials: ED Shingles (Herpes Zoster) Additional Instructions: -Avoid anyone that is immunocompremised. -Used the provided medication as prescribed. -Return here as needed. Print Language: Z[place]ian Stand Alone Forms: Kaylee Award Info., Patient Portal Info Letter
[2025-04-05] MEDS: ACYCLOVIR 800 MG TABLET PO (17:24)
== END 2025-04-05 17:41 | disposition home or self-care (01) ==
LOC: SERX 17:30
PROVIDERS: Emergency Provider Emergency Medicine
DX: B02.9 Zoster without complications (principal)
CPT/HCPCS: 99283; A9270